=== PATIENT | male | born 1945 | race Caucasian/White ===

== ENCOUNTER 2022-02-24 16:11 | Inpatient (IN) | payer MEDICARE ==
[~2022-02-24] VITALS: Ht 182.9 cm; Wt 112.0 kg
[~2022-02-24 16:11] MED LIST changes: -ATOR40TA70 PO; -CHOL10004 PO; -CYAN-41 PO; -IBUP-2473 PO; -MULT-440 PO
[2022-02-24 16:45] VITALS: BP 138/79
[2022-02-24] MEDS ORDERED: PATIENT MAY USE OWN MEDS, ALL PO SCH (17:00)
[2022-02-24] MEDS ORDERED: NITROGLYCERIN 0.4 MG SL TABS BTL 25'S SL PRN (17:00)
[2022-02-24] MEDS ORDERED: morphine INJ 4 MG/ML 1 ML (VIAL/SYRINGE) IV PRN (17:00)
--- NOTE | 2022-02-24 17:27 | History & Physical ---
History of Present Illness History of Present Illness Reason for visit/HPI PT IS A 76 Y/O MALE WHO IS KNOWN TO ME FROM CLINIC. GIL REPORTS THAT HE HAD BEEN IN HIS USUAL STATE OF HEALTH UNTIL MONDAY MORNING WHEN HE HAD ONSET OF CHEST PAIN AND DIARRHEA. HE FELT IF HE HAD TO HAVE A BOWEL MOVEMENT, AND THEN AFTER WENT OUT TO FEED THE COWS AT HOME, RETURNED BACK TO THE HOUSE AND HAD 5 TO 7 MORE BOWEL MOVEMENTS. THE CHEST PAIN STARTED WITH HIS FIRST LOOSE STOOL AND IT DID NOT STOP FOR ABOUT TWO HOURS, IT DID NOT STOP HIS USUAL ACTIVITIES. THIS MORNING HE CONTACTED THE OFFICE TO COME IN TO BE SEEN, AND WHEN IN THE OFFICE, REPORTS THE CHEST DISCOMFORT THE DAY PRIOR. HE REPORTS THAT HE HAD BEEN OUT IN [facility] OVER THE WEEKEND, UNKNOWN EXPOSURES TO ILLNESS WHILE OUT OF TOWN, BUT NO KNOWN EXPOSURE TO ILL INDIVIDUALS IN [place]. HE DENIES CHEST PAIN, SHORTNESS OF BREATH CURRENTLY. Date of Admission Feb 24, 2022 at 16:23 Date Seen by a Provider: Feb 24, 2022 Time Seen by a Provider: 17:30 Attending Physician Juan Manuel Dyer MD Admitting Physician Juan Manuel Dyer MD Consult DR. HENNING - CARDIOLOGY Allergies and Home Medications Allergies Coded Allergies: No Known Drug Allergies (Unverified , 07/15/16) Patient Home Medication List Home Medication List Reviewed: Yes Aspirin (Aspir 81) 81 Mg Tablet., 81 MG PO DAILY, (Reported) Entered as Reported by: SULEMA ANDRADE on 07/15/16912 Last Action: Reviewed Atorvastatin Calcium (Atorvastatin Calcium) 10 Mg Tablet, 10 MG PO DAILY, (Reported) Entered as Reported by: SULEMA ANDRADE on 07/15/16912 Last Action: Held Lisinopril (Lisinopril) 5 Mg Tablet, 5 MG PO DAILY, (Reported) Entered as Reported by: SULEMA ANDRADE on 07/15/16912 Last Action: Held Metformin HCl (Metformin HCl) 1,000 Mg Tablet, 1,000 MG PO BID, (Reported) Entered as Reported by: SULEMA ANDRADE on 07/15/16912 Last Action: Held Methotrexate Tablet (Methotrexate Tablet) 2.5 Mg Tablet, 2.5 MG PO THURSDAYS, (Reported) Entered as Reported by: SULEMA ANDRADE on 07/15/16912 Last Action: Held Metoprolol Succinate (Toprol Xl) 100 Mg Tab.er.24h, 100 MG PO DAILY, (Reported) Entered as Reported by: SULEMA ANDRADE on 07/15/16912 Last Action: Held Tramadol HCl (Tramadol HCl) 50 Mg Tablet, 50 MG PO Q12H PRN for PAIN Prescribed by: STEFFANIE LEE on 07/20/16 111 Last Action: Held Past Ophunpi-Uccvlv-Cgukkq Hx Patient Social History Marrital Status: Number of Children: 2 Number of living children: 1 Living Status: LIVES AT HOME ALONE 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) Tobacco Use?: No Smoking Status: Never a Smoker Use of E-Cig and/or Vaping dev: No Substance use?: No Alcohol Use?: No Pt feels they are or have been: No Seasonal Allergies Seasonal Allergies: No Current Status Advance Directives: No Communicates: Verbally Primary Language: Belarusian Preferred Spoken Language: Belarusian Is interpretation needed?: No Implanted or Applied Medical D: None Past Medical History Currently Using CPAP: No Currently Using BIPAP: No High Cholesterol, Hypertension Sexually Transmitted Disease: Yes HIV/AIDS: No Arthritis Diabetes, Non-Insulin dep Are Your Blood Sugars Over 250: No Loss of Vision: Denies Hearing Impairment: Denies Adverse Reaction/Blood Tranf: No (N/A) Family Medical History Reviewed and Corrections made Hypertension, Other Conditions/Hx (MELANOMA - SON ) Review of Systems Constitutional: No chills, No fever, No malaise, No weakness EENTM: No hoarseness, No throat pain Respiratory: No cough, No dyspnea on exertion, No short of breath Cardiovascular: No edema, No Hx of Intervention, No palpitations Gastrointestinal: No abdominal pain; diarrhea (ON MONDAY); No loss of appe tite, No nausea, No vomiting Musculoskeletal: No back pain; joint pain, joint swelling; No muscle weakness Skin: no symptoms reported Psychiatric/Neurological: Denies Anxiety, Denies Depressed, Denies Weakness All Other Systems Reviewed Negative Unless Noted: Yes Physical Exam Vital Signs Vital Signs - First Documented 02/24/22 02/24/22 16:43 16:45 Pulse 92 Resp 12 B/P (MAP) 138/79 (98) Pulse Ox 94 O2 Delivery Room Air Capillary Refill : Height, Weight, BMI Height: 5'11.00" Weight: 250lbs. 2.0oz. [id number]; 34.9 BMI Method: General Appearance: No Apparent Distress, WD/WN HEENT: PERRL/EOMI, Pharynx Normal Neck: Full Range of Motion, Normal Inspection, Non Tender, Supple Respiratory: Chest Non Tender, Lungs Clear, Normal Breath Sounds, No Accessory Muscle Use, No Respiratory Distress Cardiovascular: Regular Rate, Rhythm, No Murmur, Normal Peripheral Pulses Gastrointestinal: Normal Bowel Sounds, No Organomegaly, No Pulsatile Mass, Non Tender, Soft Rectal: Deferred Extremity: Normal Capillary Refill, Non Tender, No Calf Tenderness, No Pedal Edema Neurologic/Psychiatric: Alert, Oriented x3, No Motor/Sensory Deficits, Normal Mood/Affect Skin: Normal Color, Warm/Dry Lymphatic: No Adenopathy Assessment/Plan Assessment and Plan MYOCARDITIS RECENT DIARRHEAL ILLNESS ELEVATED TROPONIN ELEVATED CK ELEVATED AST CHRONIC HYPERTENSION DIABETES MELLITUS MYOCARDITIS WITH: - ELEVATED TROPONIN - ELEVATED CK - ELEVATED AST - REPEAT CARDIAC LABS - CHECK ECHO - CONSULT TO DR. HENNING - MONITOR BP, HEART RATE, ESR, CRP, VIRAL PANELS (HEPATITIS, COVID, FLU, EBV) BLOOD CULTURES AND TICK PANEL RECENT DIARRHEAL ILLNESS - WITH TRAVEL TO [place] FOR A CATTLE AUCTION - ATE AT THE AUCTION - CHECK HEPATITIS PANEL AND COVID - MONITOR STOOLS, CHECK STOOL CX, FECAL OCCULT BLOOD CHRONIC HYPERTENSION - MONITOR PRESSURES, RECONCILE MEDS, RESTART IF/WHEN NEEDED. DIABETES MELLITUS - HOLD METFORMIN FOR NOW - CHECK FSBS. DVT PROPHYLAXIS WITH SCD'S AND LOVENOX GI PROPHYLAXIS WITH PPI AND PROBIOTICS Admission Diagnosis MYOCARDITIS RECENT DIARRHEAL ILLNESS ELEVATED TROPONIN ELEVATED CK ELEVATED AST CHRONIC HYPERTENSION DIABETES MELLITUS Admission Status: Inpatient Order (span 2 midnights) Reason for Inpatient Admission: ADMIT INPT DUE TO MYOCARDITIS, NEEDS WORK-UP, STABILIZATION AND MONITORING FOR AT LEAST 2 MIDNIGHTS IN THE HOSPITAL. JUAN MANUEL DYER MD Feb 24, 2022 17:27
[2022-02-24] MEDS: NS IV 1000 ML 1,000 ML IV SCH (17:44)
[2022-02-24 18:10] LABS: HEMATOCRIT 40 % (40-54); HEMOGLOBIN 12.9 g/dL (13.3-17.7); MEAN CORPUSCULAR HEMOGLOBIN 29 pg (25-34); MEAN CORPUSCULAR HGB CONC 32 g/dL (32-36); MEAN CORPUSCULAR VOLUME 90 fL (80-99); MEAN PLATELET VOLUME 9.8 fL (9.0-12.2); PLATELET COUNT 144 10^3/uL (130-400)
[2022-02-24] MEDS ORDERED: PANTOPRAZOLE 40 MG (PROTONIX) TAB PO ONE ×2 (19:00→20:32)
[2022-02-24 19:41] LABS: BILIRUBIN,URINE NEGATIVE (NEGATIVE); CLARITY,URINE CLEAR; COLOR,URINE YELLOW; GLUCOSE, URINE (UA) NEGATIVE (NEGATIVE); KETONES,URINE 1+ (NEGATIVE); LEUKOCYTE ESTERASE ,URINE NEGATIVE (NEGATIVE); NITRITE,URINE NEGATIVE (NEGATIVE); PH,URINE 5.5 (5-9); PROTEIN,URINE NEGATIVE (NEGATIVE)
[2022-02-24 19:45] LABS: CREATINE KINASE MB 74.6 NG/ML (<6.6)
[2022-02-24 19:51] LABS: BACTERIA,URINE NEGATIVE /HPF
[2022-02-24 20:00] VITALS: BP 115/72
[2022-02-24] MEDS ORDERED: IBUPROFEN 600 MG (MOTRIN) TAB PO PRN (20:00)
[2022-02-24] MEDS ORDERED: IBUPROFEN 600 MG (MOTRIN) TAB PO ONE (20:32)
[2022-02-24] MEDS: LACTOBACILLUS ACIDOPHILUS (PROBIOTIC) CAPSULE PO SCH (22:50)
[2022-02-25] VITALS (8 sets, daily range): BP systolic 106–132; BP diastolic 58–77
[2022-02-25] MEDS: NS IV 1000 ML 1,000 ML IV SCH (03:48)
[2022-02-25 05:41] LABS: ALBUMIN 3.5 GM/DL (3.2-4.5)
[2022-02-25 05:42] LABS: CALCIUM 8.9 MG/DL (8.5-10.1)
[2022-02-25 05:47] LABS: CREATININE SERUM 1.14 MG/DL (0.60-1.30)
[2022-02-25] MEDS ORDERED: PANTOPRAZOLE 40 MG (PROTONIX) TAB PO SCH (07:00)
[2022-02-25] MEDS: LACTOBACILLUS ACIDOPHILUS (PROBIOTIC) CAPSULE PO SCH ×3 (08:50→18:10)
[2022-02-25] MEDS ORDERED: ASPIRIN E.C. 81 MG (ECOTRIN) TAB PO SCH (09:00)
[2022-02-25] MEDS ORDERED: ENOXAPARIN 40 MG/0.4 ML (LOVENOX) SYR SC SCH (09:00)
--- NOTE | 2022-02-25 10:42 | Consultation-Cardiology ---
HPI-Cardiology Cardiology Consultation: Date of Consultation 02/25/22 Date of Admission 02/24/22 Attending Physician Sisi Dyer MD Admitting Physician Sisi Dyer MD Consulting Physician JOSE ROBERTO HENNING JR, MD HPI: Time Seen by a Provider: 11:43 Chief Complaint: Reason for consultation: Elevated troponin level. I had the pleasure of seeing Beto on the cardiac stepdown unit at [facility] in [place], [place] today. He has no known history of cardiac disease but does have cardiac risk factors of hypertension, hyperlipidemia and type 2 diabetes mellitus. He was in his usual state of good health until approximately 2 days ago when he developed a sharp pain in the left side of his chest. He denies associated complaints. This lasted for about 4 hours. Around this time he also had some frequent bowel movements and diffuse episodes of diarrhea. He did not seek immediate medical attention. Then yesterday he called Dr. Dyer's office to make an appointment and when he told her about these symptoms, Dr. Dyer sent him to the hospital for an electrocardiogram and some blood tests. He then went home. A short while later, the troponin level came back markedly elevated at just over 50. Dr. Dyer then had the patient come to the hospital for direct admission. He denies any further chest discomfort since that one episode. He denies dyspnea, paroxysmal nocturnal dyspnea, orthopnea, palpitations, lightheadedness, syncope, or lower extremity edema. His diarrhea seems to have subsided. He did have some mild abdominal discomfort yesterday. Certain portions of this document may have been dictated utilizing voice recognition technology. Inherent to this technology, typographical and gramm atical errors may exist. As much as I am diligent to identify and correct these mistakes, some errors may remain in the document. Review of Systems-Cardiology Review of Systems Other comments Review of 10 organ systems is as per the history of present illness, otherwise negative. 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 Family Medical History Family Medical History: The patient does not know of any family history of premature coronary artery disease in first-degree relatives. Allergies and Home Medications Allergies Coded Allergies: No Known Drug Allergies (Unverified , 07/15/16) Patient Home Medication List Home Medication List Reviewed: Yes Aspirin (Aspir 81) 81 Mg Tablet.dr, 81 MG PO DAILY, (Reported) Entered as Reported by: SULEMA ANDRADE on 07/15/16912 Last Action: Reviewed Atorvastatin Calcium (Atorvastatin Calcium) 10 Mg Tablet, 10 MG PO DAILY, (Repor bess) Entered as Reported by: SULEMA ANDRADE on 07/15/16912 Last Action: Held Lisinopril (Lisinopril) 5 Mg Tablet, 5 MG PO DAILY, (Reported) Entered as Reported by: SULEMA ANDRADE on 07/15/16912 Last Action: Held Metformin HCl (Metformin HCl) 1,000 Mg Tablet, 1,000 MG PO BID, (Reported) Entered as Reported by: SULEMA ANDRADE on 07/15/16912 Last Action: Held Methotrexate Tablet (Methotrexate Tablet) 2.5 Mg Tablet, 2.5 MG PO THURSDAYS, (Reported) Entered as Reported by: SULEMA ANDRADE on 07/15/16912 Last Action: Held Metoprolol Succinate (Toprol Xl) 100 Mg Tab.er.24h, 100 MG PO DAILY, (Reported) Entered as Reported by: SULEMA ANDRADE on 07/15/16912 Last Action: Held Tramadol HCl (Tramadol HCl) 50 Mg Tablet, 50 MG PO Q12H PRN for PAIN Prescribed by: STEFFANIE LEE on 07/20/16 1110 Last Action: Held Exam Vital Signs Vital Signs Date Time Temp Pulse Resp B/P (MAP) Pulse Ox O2 Delivery O2 Flow Rate FiO2 02/25/22 09:10 Room Air 02/25/22 08:00 37.4 72 27 130/77 (94) 95 Physical Exam General: Alert. No acute distress. Well nourished and appears stated age. Eye: Extraocular movements are intact. Conjunctivae are clear. There are no xanthelasma. HENT: Normocephalic. Atraumatic. Carotid pulsations 2/2 without bruits. Neck: Jugular venous pressure does not appear elevated. No thyromegaly appreciated. Respiratory: Lungs are clear to auscultation. Respirations are non-labored. Breath sounds are equal. Symmetrical chest wall expansion. Cardiovascular: Normal rate. Regular rhythm. No murmur. No gallop. Point of maximal impulse is not appear displaced. Good pulses equal in all extremities. No edema. Gastrointestinal: Soft. Normal bowel sounds. Skin: Skin turgor is normal. There is no pallor. Musculoskeletal: No kyphosis or scoliosis appreciated. Neurologic: Alert and oriented to person, place, time. Cranial nerves 3-12 appear grossly intact. The patient has good motor tone strength in the upper and lower extremities bilaterally. Psychiatric: Cooperative. Appropriate mood & affect. Labs Laboratory Tests Test 02/24/22 16:55 02/24/22 17:50 02/24/22 18:15 02/24/22 19:30 Range/Units Total Creatine Kinase 1162 H 30-200 U/L Creatine Kinase MB 74.6 *H <6.6 NG/ML Myoglobin 220.5 H 10.0-92.0 NG/ML Troponin I 32.473 *H <0.028 NG/ML C-Reactive Protein High Sensitivity 0.74 H 0.00-0.50 MG/DL White Blood Count 11.0 4.3-11.0 10^3/uL Red Blood Count 4.45 4.30-5.52 10^6/uL Hemoglobin 12.9 L 13.3-17.7 g/dL Hematocrit 40 40-54 % Mean Corpuscular Volume 90 80-99 fL Mean Corpuscular Hemoglobin 29 25-34 pg Mean Corpuscular Hemoglobin Concent 32 32-36 g/dL Red Cell Distribution Width 13.8 10.0-14.5 % Platelet Count 144 130-400 10^3/uL Mean Platelet Volume 9.8 9.0-12.2 fL Erythrocyte Sedimentation Rate 10 0-30 MM/HR Ehrlichia chaffeensis IgG Antibody TNP:Duplicate Test Ehrlichia chaffeensis IgM Antibody TNP:Duplicate Test Influenza Type A (RT-PCR) Not Detected Not Detecte Influenza Type B (RT-PCR) Not Detected Not Detecte SARS-CoV-2 RNA (RT-PCR) Not Detected Not Detecte Urine Color YELLOW Urine Clarity CLEAR Urine pH 5.5 5-9 Urine Specific [place] 1.020 1.016-1.022 Urine Protein NEGATIVE NEGATIVE Urine Glucose (UA) NEGATIVE NEGATIVE Urine Ketones 1+ H NEGATIVE Urine Nitrite NEGATIVE NEGATIVE Urine Bilirubin NEGATIVE NEGATIVE Urine Urobilinogen 0.2 < = 1.0 MG/DL Urine Leukocyte Esterase NEGATIVE NEGATIVE Urine RBC (Auto) NEGATIVE NEGATIVE Urine RBC NONE /HPF Urine WBC NONE /HPF Urine Squamous Epithelial Cells NONE /HPF Urine Renal Epithelial Cells NONE /HPF Urine Crystals NONE /LPF Urine Bacteria NEGATIVE /HPF Urine Casts NONE /LPF Urine Mucus NEGATIVE /LPF Urine Culture Indicated NO Test 02/24/22 21:03 02/25/22 05:15 02/25/22 10:56 Range/Units Glucometer 178 H 131 H 70-110 MG/DL Sodium Level 141 135-145 MMOL/L Potassium Level 4.0 3.6-5.0 MMOL/L Chloride Level 107 98-107 MMOL/L Carbon Dioxide Level 21 21-32 MMOL/L Anion Gap 13 5-14 MMOL/L Blood Urea Nitrogen 14 7-18 MG/DL Creatinine 1.14 0.60-1.30 MG/DL Estimat Glomerular Filtration Rate 67 BUN/Creatinine Ratio 12 Glucose Level 146 H 70-105 MG/DL Calcium Level 8.9 8.5-10.1 MG/DL Corrected Calcium 9.3 8.5-10.1 MG/DL Total Bilirubin 1.0 0.1-1.0 MG/DL Aspartate Amino Transf (AST/SGOT) 92 H 5-34 U/L Alanine Aminotransferase (ALT/SGPT) 35 0-55 U/L Alkaline Phosphatase 76 40-136 U/L Total Protein 6.0 L 6.4-8.2 GM/DL Albumin 3.5 3.2-4.5 GM/DL Triglycerides Level 69 <150 MG/DL Cholesterol Level 80 < 200 MG/DL LDL Cholesterol Direct 34 1-129 MG/DL VLDL Cholesterol 14 5-40 MG/DL HDL Cholesterol 28 L 40-60 MG/DL Radiology ECHOCARDIOGRAM (02/25/2022): 1. This is a technically difficult study due to poor image quality secondary to patient's body habitus. 2. Left ventricle: The cavity size is normal. There is mild concentric hypertrophy. Systolic function is mildly reduced. The estimated ejection fraction is 40-45%. There is global hypokinesis with minor regional variability. The left ventricular diastolic function is indeterminate. 3. Right ventricle: The right ventricle is severely dilated measuring 4.5 cm at the base. Systolic function is normal. TAPSE 2.2 cm. 4. Aortic valve: The aortic valve appears tricuspid with mildly thickened and calcified leaflets with at least mildly restricted mobility. There appears to be at least mild aortic stenosis however, accurate gradients were not obtained. There is mild aortic regurgitation with a pressure half-time of 501 ms. 5. Aortic root: The aortic root is mildly dilated measuring 3.9 cm. 6. Pulmonary arteries: The estimated pulmonary artery systolic pressure is 47 mmHg assuming a right atrial pressure of 5 mmHg. ECG Impression ECG Comment Sinus rhythm with early transition, consider posterior infarct. Diagnosis/Problems Diagnosis/Problems (1) Chest pain Assessment & Plan: Exact etiology unclear. He does have a markedly elevated troponin level but no acute ischemic changes on his resting electrocardiogram. He does have several cardiac risk factors. His echocardiogram shows mild left ventricular systolic dysfunction. An acute coronary syndrome is certainly in the differential diagnosis. Myocarditis could also cause a seen picture and the primary provider has ordered some titers to screen for the more common causes of myocarditis. His Covid test has come back negative. In light of the constellation of findings, I recommend further evaluation with a cardiac catheterization. (2) Troponin level elevated Assessment & Plan: As above, his troponin level is markedly elevated. If this is in fact an acute myocardial infarction, I would have suspected much more significant left ventricular dysfunction. Fortunately, the troponin level has trended downwards. He has not had any further chest discomfort. However, I do recommend further evaluation with a cardiac catheterization. I have explained the benefits and risks of the procedure to the patient and he is in agreement to proceed. (3) Cardiomyopathy Assessment & Plan: He has mild left ventricular systolic dysfunction. He was taking metoprolol succinate and lisinopril at home for his hypertension. I have resumed both of these medications but I lowered the doses metoprolol due to somewhat low blood pressures at the present time. He did have a chest x-ray and this did not show any overt signs of heart failure. (4) Nonrheumatic aortic valve stenosis with regurgitation Assessment & Plan: His echocardiogram showed possible mild aortic stenosis although accurate gradients could not be obtained. This will need to be followed longitudinally. (5) Pulmonary hypertension Assessment & Plan: He has mild pulmonary hypertension. Exact etiology unclear. As above, his chest x-ray did not show overt heart failure. This will need to be followed longitudinally. JOSE ROBERTO HENNING JR, MD Feb 25, 2022 10:42
[2022-02-25] MEDS ORDERED: CATHETER FLUSH 10 ML SYR IV PRN (11:30)
[2022-02-25] MEDS ORDERED: NS IV 1000 ML 1,000 ML IV ONE (11:30)
[2022-02-25] MEDS ORDERED: meTOproloL SUCCINATE 50 MG (TOPROL XL) TAB PO NR (12:00)
[2022-02-25] MEDS ORDERED: fentaNYL INJ 100 MCG/2 ML AMP ONE (12:17)
[2022-02-25] MEDS ORDERED: VERAPAMIL 5 MG/2 ML (CALAN) VIAL IV ONE (12:17)
[2022-02-25] MEDS ORDERED: LIDOCAINE 1% INJ 20 ML VIAL ONE (12:18)
[2022-02-25] MEDS ORDERED: NITRO DRIP 25000 MCG/D5W 250 ML IV ONE (12:18)
[2022-02-25] MEDS ORDERED: HEParin 1000 UNIT/ML (10ML VIAL) FOR BOLUS ONE (12:18)
[2022-02-25] MEDS ORDERED: NS IV 1000 ML 1,000 ML ONE (12:18)
[2022-02-25] MEDS ORDERED: HEParin (CATH LAB) 2,000 ML IV ONE (12:18)
[2022-02-25] MEDS ORDERED: MIDAZOLAM 5 MG/5 ML (VERSED) VIAL ONE (12:18)
--- NOTE | 2022-02-25 13:07 | Progress Note ---
Subjective Subjective Date Seen by Provider: Feb 25, 2022 Time Seen by Provider: 10:30 PT SEEN AT 0800 AND AGAIN AROUND 1030 - PT'S GRANDDAUGHTER IN THE ROOM ON SECOND VISIT. PT REPORTS THAT HE IS HUNGRY, IS READY TO BE TESTED HOWEVER NEEDED TO GET SOME FOOD AND GET HOME. HE DENIES ANY CURRENT CHEST PAIN, ABDOMINAL PAIN, NAUSEA, DIARRHEA. Review of Systems General: No Chills; Fatigue HEENT: No Head Aches Pulmonary: No Dyspnea, No Cough Cardiovascular: No: Chest Pain, Palpitations Gastrointestinal: No: Nausea, Diarrhea Genitourinary: No Dysuria, No Frequency Neurological: No: Weakness, Confusion All Other Systems Reviewed All Other Systems Reviewed: Yes Objective Exam Vital Signs Vital Signs Date Time Temp Pulse Resp B/P (MAP) Pulse Ox O2 Delivery O2 Flow Rate FiO2 02/25/22 12:47 81 02/25/22 09:10 Room Air 02/25/22 08:00 37.4 72 27 130/77 (94) 95 Room Air 02/25/22 07:00 72 02/25/22 05:10 98 Room Air 02/25/22 04:00 36.2 72 20 117/67 (84) 92 Room Air 02/25/22 01:10 98 Room Air 02/25/22 00:32 67 02/25/22 00:00 36.7 74 18 108/58 (75) 98 Room Air 02/24/22 21:10 98 Room Air 02/24/22 20:00 36.9 75 20 115/72 (86) 97 Room Air 02/24/22 19:00 69 02/24/22 17:00 98 Room Air 02/24/22 16:45 87 12 138/79 (98) 94 Room Air 02/24/22 16:43 92 I & O 02/25/22 07:00 Intake Total 2680 ml Output Total 150 ml Balance 2530 ml General Appearance: No Apparent Distress, WD/WN HEENT: PERRL/EOMI, Pharynx Normal Neck: Full Range of Motion, Normal Inspection, Non Tender, Supple Respiratory: Chest Non Tender, Lungs Clear, Normal Breath Sounds, No Accessory Muscle Use, No Respiratory Distress Cardiovascular: Regular Rate, Rhythm, No Murmur, Normal Peripheral Pulses Gastrointestinal: Normal Bowel Sounds, No Organomegaly, No Pulsatile Mass, Non Tender, Soft Rectal: Deferred Extremity: Normal Capillary Refill, Non Tender, No Calf Tenderness, No Pedal Edema Neurologic/Psychiatric: Alert, Oriented x3, No Motor/Sensory Deficits, Normal Mood/Affect Skin: Normal Color, Warm/Dry Lymphatic: No Adenopathy Results Lab Laboratory Tests 02/24/22 16:55: Total Creatine Kinase 1162H, Creatine Kinase MB 74.6*H, Myoglobin 220.5H, Troponin I 32.473*H, C-Reactive Protein High Sensitivity 0.74H 02/24/22 17:50: White Blood Count 11.0, Red Blood Count 4.45, Hemoglobin 12.9L, Hematocrit 40, Mean Corpuscular Volume 90, Mean Corpuscular Hemoglobin 29, Mean Corpuscular Hemoglobin Concent 32, Red Cell Distribution Width 13.8, Platelet Count 144, Mean Platelet Volume 9.8, Erythrocyte Sedimentation Rate 10, Ehrlichia chaffeensis IgG Antibody TNP:Duplicate Test, Ehrlichia chaffeensis IgM Antibody TNP:Duplicate Test 02/24/22 18:15: Influenza Type A (RT-PCR) Not Detected, Influenza Type B (RT-PCR) Not Detected, SARS-CoV-2 RNA (RT-PCR) Not Detected 02/24/22 19:30: Urine Color YELLOW, Urine Clarity CLEAR, Urine pH 5.5, Urine Specific [place] 1.020, Urine Protein NEGATIVE, Urine Glucose (UA) NEGATIVE, Urine Ketones 1+H, Urine Nitrite NEGATIVE, Urine Bilirubin NEGATIVE, Urine Urobilinogen 0.2, Urine Leukocyte Esterase NEGATIVE, Urine RBC (Auto) NEGATIVE, Urine RBC NONE, Urine WBC NONE, Urine Squamous Epithelial Cells NONE, Urine Renal Epithelial Cells NONE, Urine Crystals NONE, Urine Bacteria NEGATIVE, Urine Casts NONE, Urine Mucus NEGATIVE, Urine Culture Indicated NO 02/24/22 21:03: Glucometer 178H 02/25/22 05:15: Sodium Level 141, Potassium Level 4.0, Chloride Level 107, Carbon Dioxide Level 21, Anion Gap 13, Blood Urea Nitrogen 14, Creatinine 1.14, Estimat Glomerular Filtration Rate 67, BUN/Creatinine Ratio 12, Glucose Level 146H, Calcium Level 8.9, Corrected Calcium 9.3, Total Bilirubin 1.0, Aspartate Amino Transf (AST/SGOT) 92H, Alanine Aminotransferase (ALT/SGPT) 35, Alkaline Phosphatase 76, Total Protein 6.0L, Albumin 3.5, Triglycerides Level 69, Cholesterol Level 80, LDL Cholesterol Direct 34, VLDL Cholesterol 14, HDL Cholesterol 28L 02/25/22 10:56: Glucometer 131H Assessment/Plan Assessment/Plan Admission Dx MYOCARDITIS RECENT DIARRHEAL ILLNESS ELEVATED TROPONIN ELEVATED CK ELEVATED AST CHRONIC HYPERTENSION DIABETES MELLITUS Assessment and Plan MYOCARDITIS RECENT DIARRHEAL ILLNESS ELEVATED TROPONIN ELEVATED CK ELEVATED AST CHRONIC HYPERTENSION DIABETES MELLITUS MYOCARDITIS WITH: - ELEVATED TROPONIN - ELEVATED CK - ELEVATED AST - REPEAT CARDIAC LABS STILL ELEVATED TROPONIN AND CKMB ELEVATED. - ECHO - LEFT VENTRICLE - MILD CONCENTRIC HYPERTROPHY, MILDY REDUCED SYSTOLIC FUNCTION, EF OF 40 TO 45%, GLOBAL HYPOKINESIS - RIGHT VENTRICLE SEVERELY DILATED - AORTIC VALVEMILD STENOSIS, MILD REGURGITATION - PULMONARY ARTERIES - MILDLY ELEVATED 47MMhG - CONSULT TO DR. HENNING - PLANNING ON HEART CATHETERIZATION TODAY. - MONITOR BP, HEART RATE, - DOPER RESTARTED METOPROLOL AND LISINOPRIL - ESR NORMAL, CRP MILDLY ELEVATED - VIRAL PANELS: - HEPATITIS AND EBV PENDING - COVID AND FLU NEGATIVE - CHECK BLOOD CULTURES AND TICK PANEL PENDING RECENT DIARRHEAL ILLNESS - WITH TRAVEL TO [place] FOR A CATTLE AUCTION - ATE AT THE AUCTION - CHECK HEPATITIS PANEL AND COVID - MONITOR STOOLS, CHECK STOOL CX, FECAL OCCULT BLOOD CHRONIC HYPERTENSION - MONITOR PRESSURES, RECONCILE MEDS, RESTARTED PER CARDIOLOGY DIABETES MELLITUS - HOLD METFORMIN FOR NOW - CHECK FSBS. DVT PROPHYLAXIS WITH SCD'S AND LOVENOX GI PROPHYLAXIS WITH PPI AND PROBIOTICS Admission Dx MYOCARDITIS RECENT DIARRHEAL ILLNESS ELEVATED TROPONIN ELEVATED CK ELEVATED AST CHRONIC HYPERTENSION DIABETES MELLITUS Clinical Quality Measures Admission Status Admission Dx MYOCARDITIS RECENT DIARRHEAL ILLNESS ELEVATED TROPONIN ELEVATED CK ELEVATED AST CHRONIC HYPERTENSION DIABETES MELLITUS JUAN MANUEL CHAVEZ MD Feb 25, 2022 13:07
--- NOTE | 2022-02-25 13:08 | Pre-Op Note & Conscious Sedat ---
Pre-Operative Progress Note H&P Reviewed The H&P was reviewed, patient examined and no changes noted. Date H&P Reviewed: Feb 25, 2022 Time H&P Reviewed: 13:08 Pre-Op Diagnosis: Possible NSTEMI and cardiomyopathy. Conscious Sedation Pre-Proced ASA Score 2 For ASA 3 and 4: Consider anesthesia and medical clearance. Also, for patients with a history of failed moderate sedation consider anesthesia. Airway Lungs Heart ASA score ASA 1: a normal healthy patient ASA 2: a patient with a mild systemic disease (mid diabetes, controlled hypertension, obesity ASA 3: a patient with a severe systemic disease that limits activity (angina, COPD, prior Myocardial infarction) ASA 4: a patient with an incapacitating disease that is a constant threat to life (CHF, renal failure) ASA 5: a moribund patient not expected to survive 24 hrs. (ruptured aneurysm) ASA 6: a declared brain- patient whose organs are being harvested. For emergent operations, add the letter E after the classification Mallampati Classification Grade 2 Sedation Plan Analgesia, Amnesia, Plan communicated to team members, Discussed options with patient/fam, Discussed risks with patient/fam The patient is an appropriate candidate to undergo the planned procedure, sedation, and anesthesia. The patient immediately re-assessed prior to indication. JOSE ROBERTO HENNING JR, MD Feb 25, 2022 13:08
[2022-02-25] MEDS ORDERED: HEParin 1000 UNIT/ML (10ML VIAL) FOR BOLUS IV PRN (13:45)
[2022-02-25] MEDS ORDERED: HEParin DRIP 25000 UNIT/500ML 500 ML IV SCH (13:45)
[2022-02-25] MEDS ORDERED: NS IV 1000 ML 1,000 ML IV SCH (13:45)
--- NOTE | 2022-02-25 14:04 | Cardiac Cath Report ---
CARDIAC CATHETERIZATION DATE OF PROCEDURE: 02/25/2022 INDICATION: Non-ST elevation myocardial infarction and cardiomyopathy. HISTORY: The patient is a 76 year old male with no previously known history of coronary artery disease. He had seen his primary care provider yesterday for an episode of chest discomfort that lasted about 4 hours 2 days ago. However, he did not seek medical attention until yesterday. He had no further chest discomfort. He was sent to the hospital for cardiac enzyme levels and an electrocardiogram and then he went home. However, a short while later, the primary care provider was called with a critical troponin I level at 54. Therefore, she called the patient and had him return to the hospital last evening for direct admission. He has not had any further chest discomfort. His troponin level has been trending downwards. He underwent an echocardiogram that showed mild left ventricular systolic dysfunction with an estimated ejection fraction of 40-45%. In light of these findings, he is now referred for further evaluation with a cardiac catheterization. PROCEDURES PERFORMED: 1. Diagnostic coronary angiography. PROCEDURE DESCRIPTION: After informed consent and in the fasting state, left heart catheterization was performed through the right radial artery utilizing a 6 [place] system by percutaneous approach. Standard 5 [place] Carol catheters were utilized for the diagnostic portion of the procedure. All catheters were exchanged over a guidewire. Following the procedure, a vascular band was applied to the radial artery access site and the sheath was removed with good hemostasis. RESULTS: HEMODYNAMICS: The aortic pressure was 114/67 mmHg. The aortic valve was not crossed. CORONARY ANGIOGRAPHY: The coronary arteries were moderately calcified. Left main coronary artery: There was a 60% stenosis distally with JORDY-3 flow. Left anterior descending coronary artery: There was a 70% stenosis in the ostium followed by a 99% stenosis in the mid segment with JORDY-1 flow to the apex. There were 2 moderate-sized diagonal branches. The first diagonal branch contained a long up to 80% stenosis proximally. The second diagonal branch had an 80% stenosis proximally although more focal than the first diagonal branch. Both branches had JORDY-2 flow. Left circumflex coronary artery: There was a moderate sized first twos marginal branch which was totally occluded at the ostium and appeared to have faint left to left collaterals seen filling the distal vessel. There was a large second obtuse marginal branch which was free of significant disease. Right coronary artery: Dominant and there were mild irregularities throughout the course of the vessel with a 50% stenosis in the midsegment. There were right to left collaterals seen filling the distal left anterior descending coronary artery. IMPRESSION: 1. Normal central aortic pressure. The aortic valve was not crossed. 2. Severe, calcific two-vessel coronary artery disease involving the distal left main coronary artery as outlined above. The right coronary artery is relatively spared. 3. The patient is known to have mild left ventricular systolic dysfunction with an estimated ejection fraction of 40-45% by echocardiogram obtained earlier today. 4. The patient appears to have at least mild aortic stenosis by the same echocardiogram noted above although accurate valve gradients could not be obta ined at the time of his echocardiogram. 5. The patient will need to be transferred to a tertiary care facility for consideration of coronary artery bypass surgery. Certain portions of this document may have been dictated utilizing voice recognition technology. Inherent to this technology, typographical and grammatical errors may exist. As much as I am diligent to identify and correct these mistakes, some errors may remain in the document. JOSE ROBERTO HENNING JR, MD Feb 25, 2022 14:04
[2022-02-25 14:53] LABS: BASOPHILS % (AUTO) 0 % (0-10); EOSINOPHILS % (AUTO) 0 % (0-10); HEMATOCRIT 39 % (40-54); HEMOGLOBIN 12.2 g/dL (13.3-17.7); LYMPHOCYTES % (AUTO) 8 % (12-44); MEAN CORPUSCULAR HEMOGLOBIN 29 pg (25-34); MEAN CORPUSCULAR HGB CONC 32 g/dL (32-36); MEAN CORPUSCULAR VOLUME 91 fL (80-99); MEAN PLATELET VOLUME 9.6 fL (9.0-12.2); MONOCYTES # (AUTO) 1.2 10^3/uL (0.0-1.0); MONOCYTES % (AUTO) 10 % (0-12); NEUTROPHILS # (AUTO) 9.5 10^3/uL (1.8-7.8); NEUTROPHILS % (AUTO) 80 % (42-75); PLATELET COUNT 136 10^3/uL (130-400); WHITE BLOOD COUNT 11.9 10^3/uL (4.3-11.0)
[2022-02-25 15:01] LABS: BASOPHILS % (MANUAL) 0 %; EOSINOPHILS % (MANUAL) 0 %; LYMPHOCYTES % (MANUAL) 9 %; MONOCYTES % (MANUAL) 8 %; NEUTROPHILS % (MANUAL) 83 %; RBC MORPH NORMAL
[2022-02-25 15:08] LABS: INR 1.2 (0.8-1.4); PROTHROMBIN TIME PATIENT 15.5 SEC (12.2-14.7)
[2022-02-25] MEDS ORDERED: IBUP-2473 PO (15:09)
[2022-02-25] MEDS ORDERED: MULT-440 PO (15:09)
[2022-02-25] MEDS ORDERED: ATOR40TA70 PO (15:09)
[2022-02-25] MEDS ORDERED: CYAN-41 PO (15:09)
[2022-02-25] MEDS ORDERED: CHOL10004 PO (15:09)
[2022-02-25 21:35] LABS: HEPATITIS C ANTIBODY C Non-Reactive (Non-Reactive)
[2022-02-26] MEDS ORDERED: lisINopril 5 MG (PRINIVIL) TABLET PO SCH (09:00)
[2022-02-26] MEDS ORDERED: meTOproloL SUCCINATE 50 MG (TOPROL XL) TAB PO SCH (09:00)
--- NOTE | 2022-02-28 12:13 | Physician Query Clarification ---
PQ-Intro New Diagnosis Admission/Discharge Admission Date: Feb 24, 2022 at 16:23 Discharge Date: Feb 25, 2022 at 20:20 Dr. Dyer, The medical record reflects the following clinical scenario: History/Risk Factors: myocarditis, NSTEMI, cardiomyopathy, CAD Clinical Findings: SARS-coV-2 IgG Ab nucleo positive Treatment: IVF, patient transferred Question: What condition best reflects the above clinical scenario? Please document a response in the Progress Noter or Discharge Summary. 1. Covid 2. no covid 3. Other, with explanation of the clinical findings. 4. Clinically undetermined, no explanation for the clinical findings. PHYSICIAN RESPONSE What condition reflects above: 2 Please remember a lack of response to the above will prompt a phone page by [facility]oding staff. In responding to this query, please exercise your independent professional judgment. The purpose of this communication is to more accurately reflect the complexity of your patients condition. The fact that a question is asked does not imply that any particular answer is desired or expected. Thank you for your timely response to this clarification. Requestors name: Gloria THIS PHYSICIAN QUERY FORM IS A PERMANENT PART OF THE MEDICAL RECORD GLORIA MONTEIRO Feb 28, 2022 12:13 JUAN MANUEL DYER MD Mar 04, 2022 09:35
--- NOTE | 2022-02-28 12:26 | Physician Query Clarification ---
PQ-Intro New Diagnosis Admission/Discharge Admission Date: Feb 24, 2022 at 16:23 Discharge Date: Feb 25, 2022 at 20:20 Dr. Dyer, The medical record reflects the following clinical scenario: History/Risk Factors: myocarditis, NSTEMI, cardiomyopathy, CAD, Diarrhea Clinical Findings: EBV Capsid Ag IgG Ab >750.0, EBV Capsid Ag IgG Intrp positive, EBV Nuclear Ag Ab Titer 417.0, EBV Nuc Ag IgG Interp positive Treatment: IVF, patient transferred Question: What condition best reflects the above clinical scenario? Please document a response in the Progress Noter or Discharge Summary. 1. shashi-mars virus 2. No shashi-mars virus. 3. Other, with explanation of the clinical findings. 4. Clinically undetermined, no explanation for the clinical findings. PHYSICIAN RESPONSE What condition reflects above: Other, explanation/clinical finding Explanation of clincal finding PT MAY HAVE HAD COVID, UNABLE TO DETERMINE WHEN HE HAD THIS ILLNESS, THEREFORE CANNOT CORRELATE IT WITH HIS MYOSITIS AND NSTEMI Please remember a lack of response to the above will prompt a phone page by [facility]oding staff. In responding to this query, please exercise your independent professional judgment. The purpose of this communication is to more accurately reflect the complexity of your patients condition. The fact that a question is asked does not imply that any particular answer is desired or expected. Thank you for your timely response to this clarification. Requestors name: Gloria THIS PHYSICIAN QUERY FORM IS A PERMANENT PART OF THE MEDICAL RECORD GLORIA MONTEIRO Feb 28, 2022 12:26 JUAN MANUEL DYER MD Mar 04, 2022 09:38
== END 2022-02-25 20:20 | disposition short-term general hospital (02) | DRG 281 ==
LOC: CSD 16:23
PROVIDERS: ADMIT Family Medicine; ATTEND Family Medicine
PROC: 8E0ZXY6 Isolation (ICD-10-PCS; 2022-02-24)
PROC: B2111ZZ Fluoroscopy of Multiple Coronary Arteries using Low Osmolar Contrast (ICD-10-PCS; principal; 2022-02-25)
DX: I21.4 Non-ST elevation (NSTEMI) myocardial infarction (principal); I42.9 Cardiomyopathy, unspecified; I51.4 Myocarditis, unspecified; I25.10 Atherosclerotic heart disease of native coronary artery without angina pectoris; R19.7 Diarrhea, unspecified; E11.9 Type 2 diabetes mellitus without complications; I10 Essential (primary) hypertension; E78.00 Pure hypercholesterolemia, unspecified; E78.5 Hyperlipidemia, unspecified; I35.0 Nonrheumatic aortic (valve) stenosis; I27.20 Pulmonary hypertension, unspecified; Z79.84 Long term (current) use of oral hypoglycemic drugs; Z79.82 Long term (current) use of aspirin; Z86.16 Personal history of COVID-19
CPT/HCPCS: 36415; 71046; 80053; 80061; 80074; 81000; 82550; 82553; 82947; 83735; 83874; 84484; 85007; 85027; 85379; 85610; 85652; 85730; 86141; 86618; 86663; 86664; 86665; 86666; 86668; 86757; 86769; 86788; 86789; 87040; 87636; 93005; 93306; 93454

== ENCOUNTER → 2022-02-24 | Outpatient (CLI) | payer MEDICARE ==
[~2022-02-24] MED LIST: ASPI-586 PO; ATOR10TA66 PO; ATOR40TA70 PO; CHOL10004 PO; CYAN-41 PO; IBUP-2473 PO; LISI5TAB20 PO; METF-399 PO; METO100T6 PO; MTX2.5T PO; MULT-440 PO; TRM50T PO
--- NOTE | 2022-02-24 14:43 | Diagnostic Imaging Report ---
INDICATION: Left-sided chest pain. TIME OF EXAM: 2:35 p.m. COMPARISON: No prior studies are available for comparison. FINDINGS: The heart size is normal. The pulmonary vascularity is unremarkable. The lungs are clear. No infiltrate, effusion or pneumothorax is detected. IMPRESSION: No acute cardiopulmonary process is detected. Dictated by: Dictated on workstation # [id number]
[2022-02-24 14:51] LABS: HEMATOCRIT 42 % (40-54); HEMOGLOBIN 13.5 g/dL (13.3-17.7); MEAN CORPUSCULAR HEMOGLOBIN 29 pg (25-34); MEAN CORPUSCULAR HGB CONC 32 g/dL (32-36); MEAN CORPUSCULAR VOLUME 90 fL (80-99); MEAN PLATELET VOLUME 9.4 fL (9.0-12.2); PLATELET COUNT 164 10^3/uL (130-400); WHITE BLOOD COUNT 11.8 10^3/uL (4.3-11.0)
[2022-02-24 15:08] LABS: ALBUMIN 4.2 GM/DL (3.2-4.5)
[2022-02-24 15:09] LABS: POTASSIUM 4.1 MMOL/L (3.6-5.0)
[2022-02-24 15:10] LABS: CALCIUM 9.5 MG/DL (8.5-10.1)
[2022-02-24 15:11] LABS: TOTAL PROTEIN 7.1 GM/DL (6.4-8.2)
[2022-02-24 15:13] LABS: BILIRUBIN,TOTAL 0.8 MG/DL (0.1-1.0)
[2022-02-24 15:15] LABS: CREATININE SERUM 1.14 MG/DL (0.60-1.30)
[2022-02-24 15:18] LABS: MAGNESIUM 1.6 MG/DL (1.6-2.4)
== END ==
LOC: CARD 14:07
PROVIDERS: ATTEND Nurse Practitioner Family
DX: R07.9 Chest pain, unspecified (principal); I10 Essential (primary) hypertension; E78.5 Hyperlipidemia, unspecified
CPT/HCPCS: 36415; 71046; 80053; 82550; 83735; 84484; 85027; 85379; 93005

== ENCOUNTER 2022-05-26 08:56 | Outpatient (RCR) | payer MEDICARE ==
[2022-05-19 13:28] VITALS: BP 123/70
[2022-05-19] MEDS: FERRIC CARBOXYMALTOSE INJ 750 MG in NS (IVPB) 250 ML IV SCH (13:40)
[2022-05-19 15:36] VITALS: BP 123/70
[~2022-05-26] VITALS: Ht 183 cm; Wt 112.0 kg
[~2022-05-26 08:56] MED LIST changes: +ATOR40TA70 PO; +CHOL10004 PO; +CYAN-41 PO; +IBUP-2473 PO; +MULT-440 PO
[2022-05-26] MEDS: FERRIC CARBOXYMALTOSE INJ 750 MG in NS (IVPB) 250 ML IV SCH (09:29)
[2022-05-26 09:30] VITALS: BP 137/76
== END 2022-06-12 | disposition home or self-care (01) ==
LOC: SDC 08:56
PROVIDERS: ATTEND Nurse Practitioner Family
DX: D64.9 Anemia, unspecified (principal)
CPT/HCPCS: 96365